=== PATIENT | female | born 1980 | race Caucasian/White ===

== ENCOUNTER 2016-08-18 18:49 | Emergency (ER) | payer OTHER ==
[~2016-08-18] VITALS: Ht 172.7 cm; Wt 79.0 kg
[~2016-08-18 18:49] MED LIST: DICL-86 PO; LORT5TAB PO; Z.0.BCPILL
[2016-08-18 18:57] VITALS: BP 84/60; PULSE 65; RESP 18; TEMP 98.3; O2SAT 99
--- NOTE | 2016-08-18 20:09 | RADRPT ---
EXAM DATE/TIME: 08/18/2016 19:45 [place] COMPARISON: No previous studies available for comparison. INDICATIONS : Right ankle pain. MEDICAL HISTORY : None. SURGICAL HISTORY : None. ENCOUNTER: Initial ACUITY: 1 day PAIN SCORE: 5/10 LOCATION: Right ankle. FINDINGS: Three view exam was performed of the right ankle. There is soft tissue swelling seen laterally. Ther e is a well-corticated 0.6 cm bony density. The fact this is well-corticated suggests this is likely the sequela of prior injury. An avulsion fracture at the distal tip of the fibula cannot be excluded. A donor site is not clearly identified however. The ankle is normally aligned. No radiopaque foreig n bodies are seen. Bony mineralization is normal. CONCLUSION: Soft tissue swelling is seen. There is a 0.6 cm calcified density inferior to the lateral malleolus thought likely to be the sequela prior injury. Ernesto Feliciano MD on August 18, 2016 at 20:05 Board Certified Radiologist. This report was verified electronically.
--- NOTE | 2016-08-18 20:28 | PD ---
HPI Chief Complaint: Musculoskeletal Complaint Time Seen by Provider: 19:50 Travel History International Travel<30 days: No Contact w/Intl Traveler<30days: No Traveled to known affect area: No History of Present Illness HPI 35-year-old female presents to emergency department for evaluation of right ankle pain status post twisting injury. Injury occurred 1 hour LASTING [employer]ACH[employer] B[employer]. She did not fall to the ground. Patient has lateral ankle swelling and tenderness. Pain with movement & weight bearing. alleviated with rest. severity /10. Patient denies numbness or tingling in the extremity. reports normal sensation. no deformity. she denies any other injury. PFSH Past Medical History Arthritis: Yes (RHEUMATOID) ?: Not : 0 Para: 0 Social History Alcohol Use: Yes (2-3 BEERS DAILY) Tobacco Use: No Substance Use: No Allergies-Medications (Allergen,Severity, Reaction): Coded Allergies: Sulfa (Verified Allergy, Mild, 08/18/16) Reported Meds & Prescriptions Reported Meds & Active Scripts Active No Active Prescriptions or Reported Medications Review of Systems Except as stated in HPI: all other systems reviewed are Neg General / Constitutional: No: Fever Eyes: No: Visual changes HENT: No: Headaches Cardiovascular: No: Chest Pain or Discomfort Respiratory: No: Shortness of Breath Gastrointestinal: No: Abdominal Pain Genitourinary: No: Dysuria Musculoskeletal: Positive: Other (right ankle pain.) Physical Exam Narrative GENERAL: alert, well appearing female, no acute distress. SKIN: Warm and dry. HEAD: Atraumatic. Normocephalic. EYES: Pupils equal and round. No scleral icterus. No injection or drainage. NECK: Trachea midline. No JVD. CARDIOVASCULAR: Regular rate and rhythm. RESPIRATORY: No accessory muscle use. Clear to auscultation. Breath sounds equal bilaterally. MUSCULOSKELETAL: Extremities without clubbing, cyanosis, or edema. No obvious deformities. right ankle: notable swelling & TTP over the lateral malleolus. No deformity. normal alignment. 2+ dorsal pedis& family court counsellor tibial pulse. normal sensation. ROM limited due to pain. NEUROLOGICAL: Awake and alert. No obvious cranial nerve deficits. Motor grossly within normal limits. Five out of 5 muscle strength in the arms and legs. Normal speech. PSYCHIATRIC: Appropriate mood and affect; insight and judgment normal. Data Data Last Documented VS Vital Signs Date Time Temp Pulse Resp B/P Pulse Ox O2 Delivery O2 Flow Rate FiO2 08/18/16 18:57 98.3 65 18 84/60 99 Orders Ankle, Complete ([id number]) (08/18/16 ) Splint Or Brace Apply/Monitor (08/18/16 20:16) MDM Medical Decision Making Medical Screen Exam Complete: Yes Emergency Medical Condition: Yes Differential Diagnosis Ankle sprain, strain, distal tib-fib fracture Narrative Course 35-year-old female since emergency department for evaluation of right ankle pain status post twisting injury. Patient has lateral ankle swelling and tenderness. X-ray negative for acute fracture. There is a [address], [place] area in the distal fibula area possibly indicating an old avulsion fracture. This was discussed with patient. She reports she did have a previous injury years ago. Patient given Augusto wrap, ankle stirrup and crutches. Instructed to follow with her PCP or with her. She agrees to plan Diagnosis Primary Impression: Ankle sprain Qualified Code: S93.401A - Sprain of right ankle, unspecified ligament, initial encounter Referrals: Primary Care Physician Additional Instructions: With Augusto wrap and ankle stirrup as directed. Ice and elevate the extremity. Use crutches as needed until weightbearing is pain-free. Taking [id number] Motrin [id number] milligrams by mouth every 6-8 hours as needed for pain. Scripts No Active Prescriptions or Reported Meds Disposition: 01 DISCHARGE HOME Condition: Stable Aliza Rueda Aug 18, 2016 20:28
== END 2016-08-18 20:45 | disposition home or self-care (01) ==
LOC: PHEFT 18:49
DX: S93.401A Sprain of unspecified ligament of right ankle, initial encounter (principal); Z87.39 Personal history of other diseases of the musculoskeletal system and connective tissue; X50.1XXA Overexertion from prolonged static or awkward postures, initial encounter
CPT/HCPCS: 73610; 99283